=== PATIENT | male | born 1955 | race Caucasian/White ===

== ENCOUNTER 2021-11-08 10:20 | Emergency (ER) | payer MEDICAID ==
[~2021-11-08] VITALS: Ht 182.9 cm; Wt 86.2 kg
[2021-11-08 11:43] LABS: BASOPHILS ABSOLUTE AUTO 0.03 K/mm3 (0.00-0.23); BASOPHILS PERCENT AUTO 0 % (0-2); EOSINOPHILS ABSOLUTE AUTO 0.01 K/mm3 (0.00-0.68); EOSINOPHILS PERCENT AUTO 0 % (0-6); Hemoglobin 15.2 g/dL (13.5-17.5); IMMATURE GRAN ABSOLUTE AUTO 0.05 K/mm3 (0.00-0.10); IMMATURE GRAN PERCENT AUTO 0 % (0-1); LYMPHOCYTES ABSOLUTE AUTO 1.28 K/mm3 (0.84-5.20); LYMPHOCYTES PERCENT AUTO 10 % (21-46); MONOCYTES ABSOLUTE AUTO 0.66 K/mm3 (0.16-1.47); MONOCYTES PERCENT AUTO 5 % (4-13); Mean Corpuscular HGB 28.9 pg (26.0-34.0); Mean Corpuscular HGB Conc 32.3 g/dL (31.5-36.5); Mean Corpuscular Volume 89 fL (80-100); Mean Platelet Volume 10.4 fL (9.1-12.4); NEUTROPHILS ABSOLUTE AUTO 11.05 K/mm3 (1.96-9.15); NEUTROPHILS PERCENT AUTO 85 % (41-73); Platelet Count 380 K/mm3 (150-400); RDW Coefficient Variation 14.6 % (11.7-14.2); RDW Standard Deviation 47.3 fL (35.1-46.3); Red Blood Cell Count 5.26 M/mm3 (4.30-5.90); White Blood Cell Count 13.08 K/mm3 (4.00-11.30)
[2021-11-08 11:51] LABS: PCO2 Arterial 38.4 mmHg (35-45); PO2 Arterial 81.4 mmHg (80-100); pH Blood Arterial 7.45 (7.35-7.45)
[2021-11-08 11:59] LABS: Alanine Aminotransfer (ALT/SGP 31 U/L (12-78); Albumin, Blood 3.7 g/dL (3.4-5.0); Albumin/Globulin Ratio 0.8 (0.8-1.8); Alk Phos 101 U/L (50-136); Anion Gap 5 mmol/L (6-16); Aspartate Aminotrans (AST/SGOT 26 U/L (12-37); Bilirubin, Total 0.3 mg/dL (0.1-1.0); Blood Urea Nitrogen 17 mg/dL (8-24); Bun/Creatinine Ratio 24.9 (12.0-20.0); CO2, Blood 28 mmol/L (21-32); Calcium, Blood 9.5 mg/dL (8.5-10.1); Chloride, Blood 105 mmol/L (98-108); Creatinine, Blood 0.68 mg/dL (0.60-1.20); Globulin, Blood 4.8 g/dL (2.2-4.0); Glomerular Filtration Rate >60 (60-); Glucose, Blood 107 mg/dL (70-99); Potassium, Blood 3.9 mmol/L (3.5-5.5); Sodium, Blood 138 mmol/L (136-145); Total Protein, Blood 8.5 g/dL (6.4-8.2)
[2021-11-08] MEDS ORDERED: OXYC5 PO (14:03)
[2021-11-08] MEDS ORDERED: BACITO TOP (14:03)
== END 2021-11-08 14:22 | disposition home or self-care (01) ==
LOC: ER 10:20
PROVIDERS: Physician Assistant
DX: T20.20XA Burn of second degree of head, face, and neck, unspecified site, initial encounter (principal); T20.212A Burn of second degree of left ear [any part, except ear drum], initial encounter; T20.211A Burn of second degree of right ear [any part, except ear drum], initial encounter; T23.202A Burn of second degree of left hand, unspecified site, initial encounter; T23.201A Burn of second degree of right hand, unspecified site, initial encounter; T31.0 Burns involving less than 10% of body surface; F17.210 Nicotine dependence, cigarettes, uncomplicated; W40.1XXA Explosion of explosive gases, initial encounter
CPT/HCPCS: 36415; 36600; 80053; 82375; 82803; 85025; 90714; A9270; J1885

== ENCOUNTER 2021-11-09 01:10 | Day surgery (SDC) | payer MEDICAID ==
[~2021-11-09 01:10] MED LIST: BACITO TOP; OXYC5 PO
== END 2021-11-09 23:59 | disposition home or self-care (01) ==
LOC: WOUND 01:10
DX: T23.201D Burn of second degree of right hand, unspecified site, subsequent encounter (principal); T23.0 Burn of unspecified degree of wrist and hand; T23.062D Burn of unspecified degree of back of left hand, subsequent encounter; T20.20XD Burn of second degree of head, face, and neck, unspecified site, subsequent encounter; T30.0 Burn of unspecified body region, unspecified degree; W40.8XXD Explosion of other specified explosive materials, subsequent encounter; F17.210 Nicotine dependence, cigarettes, uncomplicated
CPT/HCPCS: A9270; G0463

== ENCOUNTER 2021-11-16 08:20 | Day surgery (SDC) | payer OTHER | END 2021-11-16 22:59 | disposition home or self-care (01) | LOC: WOUND 08:20 | DX: T23.251D Burn of second degree of right palm, subsequent encounter (principal); T23.261D Burn of second degree of back of right hand, subsequent encounter; T23.262D Burn of second degree of back of left hand, subsequent encounter; T20.26XD Burn of second degree of forehead and cheek, subsequent encounter; T20.21 Burn of second degree of ear [any part, except ear drum]; W40.8XXD Explosion of other specified explosive materials, subsequent encounter | CPT/HCPCS: A9270 ==

== ENCOUNTER → 2022-02-16 | Outpatient (CLI) | payer OTHER ==
[2022-02-16 17:42] LABS: BASOPHILS ABSOLUTE AUTO 0.04 K/mm3 (0.00-0.23); BASOPHILS PERCENT AUTO 0 % (0-2); EOSINOPHILS ABSOLUTE AUTO 0.25 K/mm3 (0.00-0.68); EOSINOPHILS PERCENT AUTO 3 % (0-6); Hematocrit 36.8 % (37.0-53.0); Hemoglobin 12.2 g/dL (13.5-17.5); IMMATURE GRAN ABSOLUTE AUTO 0.03 K/mm3 (0.00-0.10); IMMATURE GRAN PERCENT AUTO 0 % (0-1); LYMPHOCYTES ABSOLUTE AUTO 1.18 K/mm3 (0.84-5.20); LYMPHOCYTES PERCENT AUTO 12 % (21-46); MONOCYTES ABSOLUTE AUTO 0.55 K/mm3 (0.16-1.47); MONOCYTES PERCENT AUTO 6 % (4-13); Mean Corpuscular HGB 28.1 pg (26.0-34.0); Mean Corpuscular HGB Conc 33.2 g/dL (31.5-36.5); Mean Corpuscular Volume 85 fL (80-100); Mean Platelet Volume 9.2 fL (9.1-12.4); NEUTROPHILS ABSOLUTE AUTO 7.87 K/mm3 (1.96-9.15); NEUTROPHILS PERCENT AUTO 79 % (41-73); Platelet Count 426 K/mm3 (150-400); RDW Coefficient Variation 14.6 % (11.7-14.2); RDW Standard Deviation 45.4 fL (35.1-46.3); Red Blood Cell Count 4.34 M/mm3 (4.30-5.90); White Blood Cell Count 9.92 K/mm3 (4.00-11.30)
[2022-02-16 17:46] LABS: Bun/Creatinine Ratio 18.7 (12.0-20.0); Calcium, Blood 9.2 mg/dL (8.5-10.1); Creatinine, Blood 0.91 mg/dL (0.60-1.20); Potassium, Blood 3.5 mmol/L (3.5-5.5)
== END | disposition home or self-care (01) ==
LOC: LAB 17:36 → LAB SHORT 17:36
PROVIDERS: Physician Assistant Surgical
DX: R06.00 Dyspnea, unspecified (principal)
CPT/HCPCS: 80048; 85025